=== PATIENT | male | born 1940 | race Caucasian/White ===

== ENCOUNTER 2018-11-25 08:27 | Day surgery (SDC) | payer MEDICARE, BC ==
[~2018-11-25] VITALS: Ht 175.3 cm; Wt 71.4 kg
[~2018-11-25 08:27] MED LIST: ASPI81CH PO; ASPI81EC; ATOR20 PO; Actos30 MG PO; Arthritis Pain650 M1 PO; B Complex #11 EACH PO; CEPH500 PO; Cinnamon500 MG; Crestor20 MG PO; Cyclobenzaprine5 MG PO; Daily Multiple1 EACH PO; FISH OIL 1,0001 EAC1 PO; FISH1000 PO; Flonase 0.05% N16 GM; GABA300 PO; GLIM2 PO; GLIP10; HYDACE5 PO; LISI20 PO; LISI5; MECL12.5 PO; MECL25 PO; METF500 PO; METF500C PO; NIAC500 PO; NIACIN ER500 MG PO; OMEG1CAP30; OMEG1CAP30 PO; PIOG30 PO; PIOG45; PROM25 PO; Prinivil10 MG PO; RANI150 PO; ROSU10TA PO; TOCO1000 PO; VITAMENS; Vitamin E100 UNIT PO; [UNRECOGNIZED DRUG - REMARK]
== END 2018-11-25 09:46 | disposition home or self-care (01) ==
LOC: ORSCSDS 08:27
PROVIDERS: Anesthesiology
PROC: 3E0R33Z Introduction of Anti-inflammatory into Spinal Canal, Percutaneous Approach (ICD-10-PCS; principal; 2018-11-25 09:30)
DX: M51.16 Intervertebral disc disorders with radiculopathy, lumbar region (principal); M48.061 Spinal stenosis, lumbar region without neurogenic claudication; I10 Essential (primary) hypertension; E78.5 Hyperlipidemia, unspecified; E78.00 Pure hypercholesterolemia, unspecified; E11.9 Type 2 diabetes mellitus without complications; K21.9 Gastro-esophageal reflux disease without esophagitis; Z79.82 Long term (current) use of aspirin; Z79.899 Other long term (current) drug therapy
CPT/HCPCS: J1040

== ENCOUNTER 2018-12-20 19:34 | Emergency (ER) | payer MEDICARE, BC ==
[~2018-12-20] VITALS: Ht 175.3 cm; Wt 71.7 kg
[2018-12-20] MEDS ORDERED: GABA300T24 (20:09)
== END 2018-12-20 20:27 | disposition home or self-care (01) ==
LOC: ER 19:34
DX: S90.122A Contusion of left lesser toe(s) without damage to nail, initial encounter (principal); W22.8XXA Striking against or struck by other objects, initial encounter; Z79.84 Long term (current) use of oral hypoglycemic drugs; Z79.899 Other long term (current) drug therapy; Z79.82 Long term (current) use of aspirin; E11.9 Type 2 diabetes mellitus without complications
CPT/HCPCS: 10140; 99282-25

== ENCOUNTER 2020-03-23 12:56 | Day surgery (SDC) | payer MEDICARE, BC ==
[~2020-03-23] VITALS: Ht 175.3 cm; Wt 70.1 kg
[~2020-03-23 12:56] MED LIST changes: +GABA300T24
[2020-03-23] MEDS ORDERED: FLUT.05NI (13:57)
[2020-03-23] MEDS ORDERED: Crestor20 MG PO (13:57)
[2020-03-23] MEDS ORDERED: GLIM2 PO (13:57)
[2020-03-23] MEDS ORDERED: MECL25 (13:58)
[2020-03-23] MEDS ORDERED: Ranitidine HCl150 M1 PO (13:59)
== END 2020-03-23 14:51 | disposition home or self-care (01) ==
LOC: ORSCSDS 12:56
PROVIDERS: Anesthesiology
PROC: 3E0R33Z Introduction of Anti-inflammatory into Spinal Canal, Percutaneous Approach (ICD-10-PCS; principal; 2020-03-23 14:30)
DX: M51.16 Intervertebral disc disorders with radiculopathy, lumbar region (principal); I10 Essential (primary) hypertension; E78.00 Pure hypercholesterolemia, unspecified; E78.5 Hyperlipidemia, unspecified; E11.9 Type 2 diabetes mellitus without complications; Z79.82 Long term (current) use of aspirin; Z79.84 Long term (current) use of oral hypoglycemic drugs; Z79.899 Other long term (current) drug therapy
CPT/HCPCS: J1040

== ENCOUNTER 2022-01-28 19:48 | Emergency (ER) | payer MEDICARE, BC ==
[~2022-01-28] VITALS: Ht 175.3 cm; Wt 68.0 kg
[~2022-01-28 19:48] MED LIST changes: +FLUT.05NI; +MECL25; +Ranitidine HCl150 M1 PO
== END 2022-01-28 22:50 | disposition home or self-care (01) ==
LOC: ER 19:48
DX: U07.1 COVID-19 (principal); E11.9 Type 2 diabetes mellitus without complications; Z79.84 Long term (current) use of oral hypoglycemic drugs; Z79.899 Other long term (current) drug therapy
CPT/HCPCS: J7030

== ENCOUNTER 2022-04-10 08:22 | Day surgery (SDC) | payer MEDICARE, BC ==
[~2022-04-10] VITALS: Ht 175.3 cm; Wt 71.6 kg
[2022-04-10] MEDS ORDERED: ATOR10 (09:03)
[2022-04-10] MEDS ORDERED: OMEP20ER (09:03)
[2022-04-10] MEDS ORDERED: GABA100 (09:04)
--- NOTE | 2022-04-10 09:25 | NUR ---
04/10/22 0925 Nicholas Dubon CALL LIGHT WITHIN REACH
== END 2022-04-10 10:50 | disposition home or self-care (01) ==
LOC: ORSCSDS 08:22
PROVIDERS: Anesthesiology
PROC: 3E0R33Z Introduction of Anti-inflammatory into Spinal Canal, Percutaneous Approach (ICD-10-PCS; principal; 2022-04-10 09:30)
DX: M51.16 Intervertebral disc disorders with radiculopathy, lumbar region (principal); K21.9 Gastro-esophageal reflux disease without esophagitis; E78.00 Pure hypercholesterolemia, unspecified; M54.50 Low back pain, unspecified; E11.9 Type 2 diabetes mellitus without complications; Z79.899 Other long term (current) drug therapy
CPT/HCPCS: 82947; J1040

== ENCOUNTER 2023-05-02 07:40 | Emergency (ER) | payer MEDICARE, BC ==
[~2023-05-02] VITALS: Ht 175.3 cm; Wt 72.6 kg
[~2023-05-02 07:40] MED LIST changes: +ATOR10; +GABA100; +OMEP20ER
[2023-05-02] MEDS ORDERED: GABA300 PO (08:10)
[2023-05-02] MEDS ORDERED: ATOR20 (08:10)
[2023-05-02 08:47] LABS: BASOPHILS ABSOLUTE AUTO 0.01 K/mm3 (0.00-0.23); BASOPHILS PERCENT AUTO 0 % (0-2); EOSINOPHILS ABSOLUTE AUTO 0.04 K/mm3 (0.00-0.68); EOSINOPHILS PERCENT AUTO 1 % (0-6); Hematocrit 34.4 % (37.0-53.0); Hemoglobin 11.3 g/dL (13.5-17.5); IMMATURE GRAN PERCENT AUTO 0 % (0-1); LYMPHOCYTES ABSOLUTE AUTO 0.43 K/mm3 (0.84-5.20); LYMPHOCYTES PERCENT AUTO 12 % (21-46); MONOCYTES ABSOLUTE AUTO 0.72 K/mm3 (0.16-1.47); MONOCYTES PERCENT AUTO 19 % (4-13); Mean Corpuscular HGB 30.8 pg (26.0-34.0); Mean Corpuscular HGB Conc 32.8 g/dL (31.5-36.5); Mean Corpuscular Volume 94 fL (80-100); Mean Platelet Volume 10.7 fL (9.1-12.4); NEUTROPHILS ABSOLUTE AUTO 2.55 K/mm3 (1.96-9.15); NEUTROPHILS PERCENT AUTO 68 % (41-73); Platelet Count 137 K/mm3 (150-400); RDW Coefficient Variation 13.6 % (11.7-14.2); RDW Standard Deviation 47.1 fL (35.1-46.3); Red Blood Cell Count 3.67 M/mm3 (4.30-5.90); White Blood Cell Count 3.75 K/mm3 (4.00-11.30)
[2023-05-02 09:06] LABS: BAND PERCENT MAN 1 % (0-8); BASOPHILS PERCENT MAN 0 % (0-2); EOSINOPHILS ABSOLUTE MAN 0.03 K/mm3 (0.00-0.68); EOSINOPHILS PERCENT MAN 1 % (0-6); LYMPHOCYTES ABSOLUTE MAN 0.48 K/mm3 (0.84-5.20); LYMPHOCYTES PERCENT MAN 13 % (21-46); MONOCYTES ABSOLUTE MAN 0.26 K/mm3 (0.16-1.47); MONOCYTES PERCENT MAN 7 % (4-13); NEUTROPHILS ABSOLUTE MAN 2.96 K/mm3 (1.96-9.15); SEG NEUTROPHILS PERCENT MAN 78 % (41-73); TOTAL CELLS COUNTED 100
[2023-05-02 09:10] LABS: Albumin, Blood 2.9 g/dL (3.4-5.0); Albumin/Globulin Ratio 0.9 (0.8-1.8); Bilirubin, Total 0.4 mg/dL (0.1-1.0); Bun/Creatinine Ratio 21.3 (12.0-20.0); Calcium, Blood 8.6 mg/dL (8.5-10.1); Creatinine, Blood 0.8 mg/dL (0.60-1.20); Globulin, Blood 3.2 g/dL (2.2-4.0); Magnesium, Blood 1.5 mg/dL (1.6-2.4); Potassium, Blood 4.3 mmol/L (3.5-5.5); Total Protein, Blood 6.1 g/dL (6.4-8.2)
[2023-05-02] MEDS ORDERED: PAXLOVID 150-11 EACH PO (10:00)
[2023-05-02 10:25] VITALS: BP 101/59
== END 2023-05-02 11:51 | disposition home or self-care (01) ==
LOC: ER 07:40
PROVIDERS: Physician Assistant
DX: U07.1 COVID-19 (principal); I95.9 Hypotension, unspecified; Z79.899 Other long term (current) drug therapy; Z79.84 Long term (current) use of oral hypoglycemic drugs; Z79.82 Long term (current) use of aspirin; I10 Essential (primary) hypertension; E11.9 Type 2 diabetes mellitus without complications; K21.9 Gastro-esophageal reflux disease without esophagitis
CPT/HCPCS: 80053; 83735; 85025; 96360; 96361; 99284-25; J7030

== ENCOUNTER → 2023-07-31 | Outpatient (CLI) | payer MEDICARE, BC ==
[~2023-07-31] MED LIST changes: +ATOR20; +PAXLOVID 150-11 EACH PO
[2023-07-31 13:36] LABS: BASOPHILS ABSOLUTE AUTO 0.04 K/mm3 (0.00-0.23); BASOPHILS PERCENT AUTO 1 % (0-2); EOSINOPHILS ABSOLUTE AUTO 0.15 K/mm3 (0.00-0.68); EOSINOPHILS PERCENT AUTO 2 % (0-6); Hematocrit 38.9 % (37.0-53.0); Hemoglobin 12.9 g/dL (13.5-17.5); IMMATURE GRAN ABSOLUTE AUTO 0.02 K/mm3 (0.00-0.10); IMMATURE GRAN PERCENT AUTO 0 % (0-1); LYMPHOCYTES ABSOLUTE AUTO 0.98 K/mm3 (0.84-5.20); LYMPHOCYTES PERCENT AUTO 16 % (21-46); MONOCYTES ABSOLUTE AUTO 0.71 K/mm3 (0.16-1.47); MONOCYTES PERCENT AUTO 11 % (4-13); Mean Corpuscular HGB 31.5 pg (26.0-34.0); Mean Corpuscular HGB Conc 33.2 g/dL (31.5-36.5); Mean Corpuscular Volume 95 fL (80-100); NEUTROPHILS ABSOLUTE AUTO 4.32 K/mm3 (1.96-9.15); NEUTROPHILS PERCENT AUTO 70 % (41-73); Platelet Count 184 K/mm3 (150-400); RDW Coefficient Variation 13.6 % (11.7-14.2); RDW Standard Deviation 47.8 fL (35.1-46.3); Red Blood Cell Count 4.09 M/mm3 (4.30-5.90); White Blood Cell Count 6.22 K/mm3 (4.00-11.30)
[2023-08-01 09:10] LABS: A/G RATIO 1.5 (1.2-2.2); BILIRUBIN, TOTAL 0.5 mg/dL (0.0-1.2); CALCIUM, SERUM 9.3 mg/dL (8.6-10.2); CREATININE, SERUM 0.91 mg/dL (0.76-1.27); GLOBULIN, TOTAL 2.7 g/dL (1.5-4.5); POTASSIUM, SERUM 4.4 mmol/L (3.5-5.2); PROTEIN, TOTAL, SERUM 6.7 g/dL (6.0-8.5)
[2023-08-01 12:10] LABS: HEMOGLOBIN A1C 7.5 % (4.8-5.6)
== END | disposition home or self-care (01) ==
LOC: LAB SHORT 11:32 → LAB 11:32
PROVIDERS: Family Medicine
DX: I12.9 Hypertensive chronic kidney disease with stage 1 through stage 4 chronic kidney disease, or unspecified chronic kidney disease (principal); E11.22 Type 2 diabetes mellitus with diabetic chronic kidney disease; N18.9 Chronic kidney disease, unspecified; E11.65 Type 2 diabetes mellitus with hyperglycemia; D63.1 Anemia in chronic kidney disease
CPT/HCPCS: 80053; 83036; 85025